=== PATIENT | female | born 1970 | race Two or more races ===

== ENCOUNTER 2019-09-18 00:26 | Inpatient (IN) | payer OTHER ==
[~2019-09-18] VITALS: Ht 157.5 cm; Wt 57.6 kg
[2019-09-18] VITALS (68 sets, daily range): BP systolic 85–137; BP diastolic 41–110
[2019-09-18] MEDS ORDERED: ASPIRIN 81 MG TAB.CHEW PO ONE (00:30)
[2019-09-18] MEDS ORDERED: ASPIRIN 81 MG TAB.CHEW ONE (00:40)
[2019-09-18 00:51] LABS: BASOPHILS # (AUTO) 0.1 /CMM (0.0-0.2); BASOPHILS % (AUTO) 0.6 % (0.0-2.0); EOSINOPHILS % (AUTO) 0.1 % (0.0-6.0); HEMATOCRIT 38 % (33-45); HEMOGLOBIN 12.1 g/dL (11.5-14.8); LYMPHOCYTES % (AUTO) 7.3 % (20.0-44.0); MEAN CORPUSCULAR HGB CONC 32 g/dl (31.0-36.0); MEAN CORPUSCULAR VOLUME 83 fL (82-100); MONOCYTES # (AUTO) 1.1 /CMM (0.1-1.30); MONOCYTES % (AUTO) 7.8 % (2.0-12.0); NEUTROPHILS # (AUTO) 11.4 /CMM (1.8-8.9); NEUTROPHILS % (AUTO) 84.2 % (43.0-81.0); PLATELET COUNT (AUTO) 326 /CMM (150-450); RED BLOOD CELL COUNT(AUTO) 4.58 MIL/uL (4.0-5.2); WHITE BLOOD COUNT (AUTO) 13.5 K/uL (4.3-11.0)
[2019-09-18 01:00] LABS: CALCIUM, SERUM 8.5 mg/dL (8.5-10.1); CARBON DIOXIDE 24 mmol/L (21-32); CHLORIDE 96 mmol/L (98-107); CREATININE 0.8 mg/dL (0.6-1.3); GLUCOSE 132 mg/dL (74-106); SODIUM SERUM 124 mmol/L (136-145); UREA NITROGEN, BLOOD 18 mg/dL (7-18)
[2019-09-18 01:06] LABS: ALANINE AMINOTRANSFERASE 11 U/L (12-78); ALBUMIN 2.6 g/dL (3.4-5.0); ALKALINE PHOSPHATASE 147 U/L (46-116); ASPARTATE AMINOTRANSFERASE 15 U/L (15-37); BILIRUBIN,DIRECT 1.3 mg/dL (0.0-0.2); BILIRUBIN,TOTAL 1.8 mg/dL (0.2-1.0); TOTAL PROTEIN, SERUM 7.4 g/dL (6.4-8.2)
[2019-09-18] MEDS ORDERED: AZITHROMYCIN 500 MG in IV D5W 250 ML IV ONE (01:30)
[2019-09-18] MEDS ORDERED: CEFTRIAXONE 1GM BAG (ER ONLY) 50 ML IV ONE ×2 (01:30→01:32)
[2019-09-18] MEDS ORDERED: AZITHROMYCIN 500 MG VIAL ONE (01:32)
[2019-09-18] MEDS ORDERED: IBUPROFEN 400 MG TABLET ONE (02:17)
[2019-09-18] MEDS ORDERED: ZOLPIDEM TARTRATE 5 MG TABLET PO PRN (02:30)
[2019-09-18] MEDS ORDERED: IV NS 0.9% 1,000 ML IV PRN (02:30)
[2019-09-18] MEDS ORDERED: NS 0.9% IV PRN (02:30)
[2019-09-18] MEDS ORDERED: IBUPROFEN 400 MG TABLET PO ONE (02:30)
[2019-09-18] MEDS ORDERED: MAGNESIUM HYDROXIDE 30 ML UDC PO PRN (02:30)
[2019-09-18] MEDS ORDERED: EPINEPHRINE (1:1000) 1 MG/ML AMPUL ONE (03:58)
[2019-09-18] MEDS ORDERED: IV NS 0.9% 1,000 ML BAG IV ONE ×3 (04:00→04:30)
[2019-09-18] MEDS ORDERED: NALOXONE PREFILLED SYRINGE 2 MG/2 ML SYRINGE ONE (04:00)
[2019-09-18] MEDS ORDERED: DOPamine 400MG/D5W 250ML RTU 250 ML IV ONE (04:03)
[2019-09-18] MEDS ORDERED: ONDANSETRON HCL/PF 4 MG/2 ML VIAL ONE (04:15)
[2019-09-18] MEDS ORDERED: SODIUM BICARBONATE SYR 50 MEQ/50 ML DISP.SYRIN ONE (04:25)
[2019-09-18 04:26] LABS: ABG BASE EXCESS -11.7 mmol/L; ABG PCO2 29.2 mmHg (35.0-45.0); ABG PH 7.285 (7.350-7.450); ABG PO2 105.2 mmHg (75.0-100.0); AaDO2 117.6 mmHg; COHb 1.2 % (0.5-1.5); MetHb 0.1 % (0.0-1.5); O2Hb 94.8 % (94.0-97.0); SITE, ABG Right Radial; VENT MODE, BG N/C 4L
[2019-09-18] MEDS ORDERED: SODIUM BICARBONATE SYR 50 MEQ/50 ML DISP.SYRIN IV ONE (04:30)
[2019-09-18] MEDS ORDERED: DOPamine 400 MG in IV D5W 250 ML IV PRN (04:30)
[2019-09-18] MEDS ORDERED: SODIUM BICARBONATE SYR 100 MEQ in IV NS 0.9% 1,000 ML IV PRN (04:30)
[2019-09-18] MEDS ORDERED: NALOXONE PREFILLED SYRINGE 2 MG/2 ML SYRINGE IV ONE (04:30)
[2019-09-18] MEDS ORDERED: EPINEPHRINE (1:1000) MDV 30 MG/30ML VIAL SUBCUT ONE (04:30)
[2019-09-18] MEDS ORDERED: IV NS 0.9% 250 ML IV ONE (04:49)
[2019-09-18] MEDS ORDERED: IOHEXOL-350 100 ML VIAL IV ONE (04:49)
[2019-09-18] MEDS ORDERED: CT SWABBABLE VALVE TRANS SET 1 EA INFUS.SET MC ONE (04:49)
[2019-09-18 04:56] LABS: ALCOHOL, BLOOD < 3 mg/dL (0-0)
[2019-09-18 04:59] LABS: ACETAMINOPHEN 0 ug/ml (10-30)
[2019-09-18] MEDS ORDERED: ONDANSETRON HCL/PF 4 MG/2 ML VIAL IV PRN (05:00)
[2019-09-18 05:04] LABS: APPEARANCE,URINE CLEAR (CLEAR); BILIRUBIN,URINE NEGATIVE (NEGATIVE); BLOOD, URINE NEGATIVE Ery/uL (NEGATIVE); KETONES,URINE NEGATIVE (NEGATIVE); LEUKOCYTE ESTERASE ,URINE NEGATIVE (NEGATIVE); NITRITE, URINE NEGATIVE (NEGATIVE); PH,URINE 6.5 (5.0-8.0); PROTEIN,URINE NEGATIVE (NEGATIVE); UGLUCOSE NEGATIVE (NEGATIVE)
[2019-09-18 05:08] LABS: COLOR,URINE YELLOW (YELLOW); UROBILINOGEN,URINE 0.2 EU/dL (0.2)
[2019-09-18 07:32] LABS: BASOPHILS # (AUTO) 0.1 /CMM (0.0-0.2); BASOPHILS % (AUTO) 0.3 % (0.0-2.0); HEMATOCRIT 43 % (33-45); HEMOGLOBIN 13.4 g/dL (11.5-14.8); LYMPHOCYTES # (AUTO) 0.9 /CMM (0.8-4.8); LYMPHOCYTES % (AUTO) 5.4 % (20.0-44.0); MEAN CORPUSCULAR HGB CONC 31 g/dl (31.0-36.0); MEAN CORPUSCULAR VOLUME 84 fL (82-100); MONOCYTES % (AUTO) 11.8 % (2.0-12.0); NEUTROPHILS # (AUTO) 14.2 /CMM (1.8-8.9); NEUTROPHILS % (AUTO) 82.5 % (43.0-81.0); PLATELET COUNT (AUTO) 369 /CMM (150-450); RED BLOOD CELL COUNT(AUTO) 5.19 MIL/uL (4.0-5.2); WHITE BLOOD COUNT (AUTO) 17.3 K/uL (4.3-11.0)
[2019-09-18 07:42] LABS: CALCIUM, SERUM 8.1 mg/dL (8.5-10.1); MAGNESIUM 1.7 mg/dL (1.8-2.4); PHOSPHORUS 3.3 mg/dL (2.5-4.9); POTASSIUM 4.1 mmol/L (3.5-5.1)
[2019-09-18] MEDS ORDERED: PHEN100C4 PO (08:34)
[2019-09-18] MEDS ORDERED: SPIR25TA PO (08:34)
[2019-09-18] MEDS ORDERED: OXCA300T4 PO (08:34)
[2019-09-18] MEDS ORDERED: METF-440 PO (08:34)
[2019-09-18] MEDS ORDERED: TRAZ-182 PO (08:34)
[2019-09-18] MEDS ORDERED: SERT100T PO (08:34)
[2019-09-18] MEDS: NOREPINEPHRINE 8 MG in IV D5W 500 ML IV PRN (10:08)
[2019-09-18] MEDS: Magnesium 1GM/D5W 100ML PREMIX 100 ML IV SCH ×2 (10:10→11:11)
[2019-09-18 10:57] LABS: OSMOLALITY,URINE 237 mOS/kg (340-1090); URINE SODIUM, RANDOM 26 mmol/l (40-220)
[2019-09-18] MEDS ORDERED: DoBUTamine 500 MG/250 ML PIGGYBACK IV ONE ×2 (11:30→12:00)
[2019-09-18] MEDS: ASPIRIN 81 MG TAB.CHEW PO SCH (12:25)
[2019-09-18] MEDS: DOBUTamine 500 MG in IV NS 0.9% 210 ML IV PRN (13:05)
[2019-09-18] MEDS: HYDROCODONE/APAP 5/325MG 1 EACH TABLET PO PRN ×2 (18:03→22:46)
[2019-09-18] MEDS: ENOXAPARIN SODIUM 40 MG/0.4 ML DISP.SYRIN SQ SCH (18:06)
[2019-09-18] MEDS ORDERED: ATORVASTATIN 10 MG TABLET PO SCH (22:00)
[2019-09-18] MEDS: CEFTRIAXONE 1 G in IV D5W 50 ML IV SCH (22:40)
[2019-09-18] MEDS: MORPHINE SULFATE INJ 2 MG/ML DISP.SYRIN IV PRN (23:43)
[2019-09-19] VITALS (87 sets, daily range): BP systolic 67–120; BP diastolic 41–80
[2019-09-19] MEDS: ZITHROMAX 500 MG/250 ML D5W IV SCH ×2 (00:34)
[2019-09-19] MEDS ORDERED: AZITHROMYCIN 500 MG in IV D5W 250 ML IV SCH (01:00)
[2019-09-19] MEDS: DOBUTamine 500 MG in IV NS 0.9% 210 ML IV PRN ×2 (03:24→21:26)
[2019-09-19 04:41] LABS: CALCIUM, SERUM 7.7 mg/dL (8.5-10.1); CREATININE 0.8 mg/dL (0.6-1.3); MAGNESIUM 1.8 mg/dL (1.8-2.4); PHOSPHORUS 3.1 mg/dL (2.5-4.9); POTASSIUM 4.2 mmol/L (3.5-5.1)
[2019-09-19 05:15] LABS: OSMOLALITY,URINE 877 mOS/kg (340-1090)
[2019-09-19 05:18] LABS: URINE SODIUM, RANDOM 37 mmol/l (40-220)
[2019-09-19 05:26] LABS: THYROID STIMULATING HORMONE 2.075 uIU/mL (0.358-3.74); URIC ACID 2.3 mg/dL (2.6-7.2)
[2019-09-19] MEDS: NOREPINEPHRINE 8 MG in IV D5W 500 ML IV PRN (08:06)
[2019-09-19] MEDS ORDERED: NOREPINEPHRINE 8 MG in IV D5W 500 ML IV PRN (09:00)
[2019-09-19] MEDS: ASPIRIN 81 MG TAB.CHEW PO SCH (09:08)
[2019-09-19] MEDS: Z GUARD REMEDY 2 OZ OINT TP SCH (10:41)
[2019-09-19] MEDS: LORAZEPAM 1 MG TABLET PO PRN (11:29)
[2019-09-19 13:10] LABS: HIV SCRN 4G wRFX Non Reactive (Non Reactive)
[2019-09-19] MEDS: MORPHINE SULFATE INJ 2 MG/ML DISP.SYRIN IV PRN (19:19)
[2019-09-19] MEDS: MUPIROCIN OINT 2% 22 GM TUBE TP SCH (19:40)
[2019-09-19] MEDS: ENOXAPARIN SODIUM 40 MG/0.4 ML DISP.SYRIN SQ SCH (20:16)
[2019-09-19] MEDS: ONDANSETRON HCL/PF 4 MG/2 ML VIAL IVP PRN (21:48)
[2019-09-19] MEDS: HYDROCODONE/APAP 5/325MG 1 EACH TABLET PO PRN (22:16)
[2019-09-19] MEDS: CEFTRIAXONE 1 G in IV D5W 50 ML IV SCH (22:20)
[2019-09-20] VITALS (25 sets, daily range): BP systolic 87–119; BP diastolic 47–75
[2019-09-20] MEDS: ZITHROMAX 500 MG/250 ML D5W IV SCH ×2 (00:31)
[2019-09-20] MEDS: HYDROCODONE/APAP 5/325MG 1 EACH TABLET PO PRN (04:45)
[2019-09-20] MEDS: MUPIROCIN OINT 2% 22 GM TUBE TP SCH ×2 (04:46→16:41)
[2019-09-20 04:54] LABS: BASOPHILS # (AUTO) 0.1 /CMM (0.0-0.2); BASOPHILS % (AUTO) 0.9 % (0.0-2.0); EOSINOPHILS % (AUTO) 2.3 % (0.0-6.0); HEMATOCRIT 33 % (33-45); HEMOGLOBIN 10.6 g/dL (11.5-14.8); LYMPHOCYTES # (AUTO) 1.2 /CMM (0.8-4.8); LYMPHOCYTES % (AUTO) 11.6 % (20.0-44.0); MEAN CORPUSCULAR HGB CONC 33 g/dl (31.0-36.0); MEAN CORPUSCULAR VOLUME 83 fL (82-100); MONOCYTES # (AUTO) 0.9 /CMM (0.1-1.30); MONOCYTES % (AUTO) 9.4 % (2.0-12.0); NEUTROPHILS # (AUTO) 7.6 /CMM (1.8-8.9); NEUTROPHILS % (AUTO) 75.8 % (43.0-81.0); PLATELET COUNT (AUTO) 301 /CMM (150-450); RED BLOOD CELL COUNT(AUTO) 3.94 MIL/uL (4.0-5.2)
[2019-09-20 05:05] LABS: CALCIUM, SERUM 7.5 mg/dL (8.5-10.1); CREATININE 0.6 mg/dL (0.6-1.3); MAGNESIUM 2.6 mg/dL (1.8-2.4); PHOSPHORUS 3.3 mg/dL (2.5-4.9); POTASSIUM 4.3 mmol/L (3.5-5.1)
[2019-09-20] MEDS: ASPIRIN 81 MG TAB.CHEW PO SCH (08:05)
[2019-09-20] MEDS: Z GUARD REMEDY 2 OZ OINT TP SCH (08:06)
[2019-09-20] MEDS ORDERED: BUMETANIDE INJ 8 MG in IV NS 0.9% 48 ML IV ONE (08:30)
[2019-09-20] MEDS ORDERED: DOBUTamine 500 MG in IV NS 0.9% 210 ML IV PRN (09:30)
[2019-09-20] MEDS: MORPHINE SULFATE INJ 2 MG/ML DISP.SYRIN IV PRN ×3 (13:22→22:45)
[2019-09-20] MEDS ORDERED: DOPamine 400 MG in IV D5W 250 ML IV PRN (14:00)
[2019-09-20] MEDS: DOBUTamine 500 MG in IV D5W 210 ML IV PRN (14:57)
[2019-09-20 18:16] LABS: CALCIUM, SERUM 8.3 mg/dL (8.5-10.1); CREATININE 0.6 mg/dL (0.6-1.3); POTASSIUM 4.2 mmol/L (3.5-5.1)
[2019-09-20] MEDS: ENOXAPARIN SODIUM 40 MG/0.4 ML DISP.SYRIN SQ SCH (21:11)
[2019-09-20] MEDS: CEFTRIAXONE 1 G in IV D5W 50 ML IV SCH (22:45)
[2019-09-21] VITALS (66 sets, daily range): BP systolic 53–118; BP diastolic 22–75
[2019-09-21] MEDS: ZITHROMAX 500 MG/250 ML D5W IV SCH ×2 (01:02)
[2019-09-21] MEDS: LORAZEPAM 1 MG TABLET PO PRN ×2 (01:12→21:20)
[2019-09-21 05:08] LABS: BASOPHILS # (AUTO) 0.1 /CMM (0.0-0.2); BASOPHILS % (AUTO) 1.1 % (0.0-2.0); HEMATOCRIT 36 % (33-45); HEMOGLOBIN 11.7 g/dL (11.5-14.8); LYMPHOCYTES # (AUTO) 1.1 /CMM (0.8-4.8); LYMPHOCYTES % (AUTO) 10.5 % (20.0-44.0); MEAN CORPUSCULAR HGB CONC 32 g/dl (31.0-36.0); MEAN CORPUSCULAR VOLUME 83 fL (82-100); MONOCYTES # (AUTO) 1.1 /CMM (0.1-1.30); MONOCYTES % (AUTO) 10.5 % (2.0-12.0); NEUTROPHILS # (AUTO) 7.6 /CMM (1.8-8.9); NEUTROPHILS % (AUTO) 73.9 % (43.0-81.0); PLATELET COUNT (AUTO) 377 /CMM (150-450); RED BLOOD CELL COUNT(AUTO) 4.38 MIL/uL (4.0-5.2); WHITE BLOOD COUNT (AUTO) 10.3 K/uL (4.3-11.0)
[2019-09-21 05:21] LABS: ALBUMIN 2.4 g/dL (3.4-5.0); BILIRUBIN,TOTAL 0.8 mg/dL (0.2-1.0); CALCIUM, SERUM 8.5 mg/dL (8.5-10.1); CREATININE 0.7 mg/dL (0.6-1.3); MAGNESIUM 1.7 mg/dL (1.8-2.4); PHOSPHORUS 4.1 mg/dL (2.5-4.9); POTASSIUM 3.8 mmol/L (3.5-5.1); TOTAL PROTEIN, SERUM 7.3 g/dL (6.4-8.2)
[2019-09-21] MEDS: MUPIROCIN OINT 2% 22 GM TUBE TP SCH ×2 (05:24→16:19)
[2019-09-21] MEDS: DOBUTamine 500 MG in IV D5W 210 ML IV PRN ×2 (08:07→23:59)
[2019-09-21] MEDS: ASPIRIN 81 MG TAB.CHEW PO SCH (08:53)
[2019-09-21] MEDS: Z GUARD REMEDY 2 OZ OINT TP SCH (08:54)
[2019-09-21] MEDS: Magnesium 1GM/D5W 100ML PREMIX 100 ML IV SCH ×2 (10:05→11:10)
[2019-09-21] MEDS: MORPHINE SULFATE INJ 2 MG/ML DISP.SYRIN IV PRN (18:30)
[2019-09-21] MEDS: ENOXAPARIN SODIUM 40 MG/0.4 ML DISP.SYRIN SQ SCH (21:20)
[2019-09-21] MEDS: CEFTRIAXONE 1 G in IV D5W 50 ML IV SCH (22:03)
[2019-09-22] VITALS: BP 97/44
[2019-09-22] MEDS: ZITHROMAX 500 MG/250 ML D5W IV SCH ×2 (00:18)
[2019-09-22] MEDS: MORPHINE SULFATE INJ 2 MG/ML DISP.SYRIN IV PRN ×3 (03:36→21:14)
[2019-09-22] MEDS: MUPIROCIN OINT 2% 22 GM TUBE TP SCH ×2 (03:43→16:35)
[2019-09-22 04:00] VITALS: BP 105/67
[2019-09-22 06:35] LABS: ALBUMIN 2.2 g/dL (3.4-5.0); BILIRUBIN,TOTAL 0.5 mg/dL (0.2-1.0); CALCIUM, SERUM 8.3 mg/dL (8.5-10.1); CREATININE 0.6 mg/dL (0.6-1.3); MAGNESIUM 1.8 mg/dL (1.8-2.4); PHOSPHORUS 3.6 mg/dL (2.5-4.9); POTASSIUM 4.5 mmol/L (3.5-5.1); TOTAL PROTEIN, SERUM 7.4 g/dL (6.4-8.2)
[2019-09-22 06:36] LABS: BASOPHILS # (AUTO) 0.1 /CMM (0.0-0.2); BASOPHILS % (AUTO) 1.3 % (0.0-2.0); EOSINOPHILS % (AUTO) 5.9 % (0.0-6.0); HEMATOCRIT 37 % (33-45); HEMOGLOBIN 11.8 g/dL (11.5-14.8); MEAN CORPUSCULAR HGB CONC 32 g/dl (31.0-36.0); MEAN CORPUSCULAR VOLUME 83 fL (82-100); MONOCYTES # (AUTO) 0.8 /CMM (0.1-1.30); MONOCYTES % (AUTO) 9.1 % (2.0-12.0); NEUTROPHILS # (AUTO) 6.6 /CMM (1.8-8.9); NEUTROPHILS % (AUTO) 72.7 % (43.0-81.0); PLATELET COUNT (AUTO) 331 /CMM (150-450); WHITE BLOOD COUNT (AUTO) 9.1 K/uL (4.3-11.0)
[2019-09-22 08:00] VITALS: BP_SYST 110; BP_SYST 97; BP_DIAS 41; BP_DIAS 67
[2019-09-22] MEDS: Z GUARD REMEDY 2 OZ OINT TP SCH (09:00)
[2019-09-22] MEDS: ASPIRIN 81 MG TAB.CHEW PO SCH (09:01)
[2019-09-22] MEDS: Z GUARD REMEDY 2 OZ OINT TP PRN (09:20)
[2019-09-22] MEDS ORDERED: BUMETANIDE INJ 8 MG in IV NS 0.9% 48 ML IV ONE (10:30)
[2019-09-22 12:00] VITALS: BP_SYST 111; BP_DIAS 47; BP_DIAS 57
[2019-09-22 16:00] VITALS: BP 116/59
[2019-09-22] MEDS ORDERED: DoBUTamine 500 MG/250 ML PIGGYBACK IV SCH (16:30)
[2019-09-22] MEDS: DOBUTamine 500 MG in IV D5W 210 ML IV PRN ×2 (17:57→18:15)
[2019-09-22 20:00] VITALS: BP 120/70
[2019-09-22] MEDS: ONDANSETRON HCL/PF 4 MG/2 ML VIAL IVP PRN (21:13)
[2019-09-22] MEDS: ENOXAPARIN SODIUM 40 MG/0.4 ML DISP.SYRIN SQ SCH (21:15)
[2019-09-22] MEDS: CEFTRIAXONE 1 G in IV D5W 50 ML IV SCH (22:36)
[2019-09-22] MEDS: HYDROCODONE/APAP 5/325MG 1 EACH TABLET PO PRN (22:42)
[2019-09-23] VITALS: BP 109/67
[2019-09-23] MEDS: ZITHROMAX 500 MG/250 ML D5W IV SCH ×2 (00:20)
[2019-09-23 04:00] VITALS: BP 109/66
[2019-09-23] MEDS: MUPIROCIN OINT 2% 22 GM TUBE TP SCH ×2 (04:02→16:51)
[2019-09-23] MEDS: MORPHINE SULFATE INJ 2 MG/ML DISP.SYRIN IV PRN ×2 (05:16→20:29)
[2019-09-23 06:29] LABS: BASOPHILS # (AUTO) 0.1 /CMM (0.0-0.2); BASOPHILS % (AUTO) 1.1 % (0.0-2.0); EOSINOPHILS % (AUTO) 7.4 % (0.0-6.0); HEMATOCRIT 42 % (33-45); HEMOGLOBIN 13.3 g/dL (11.5-14.8); LYMPHOCYTES # (AUTO) 1.4 /CMM (0.8-4.8); MEAN CORPUSCULAR HGB CONC 32 g/dl (31.0-36.0); MEAN CORPUSCULAR VOLUME 83 fL (82-100); MONOCYTES # (AUTO) 1.1 /CMM (0.1-1.30); MONOCYTES % (AUTO) 11.6 % (2.0-12.0); NEUTROPHILS # (AUTO) 6.5 /CMM (1.8-8.9); NEUTROPHILS % (AUTO) 65.9 % (43.0-81.0); PLATELET COUNT (AUTO) 459 /CMM (150-450); RED BLOOD CELL COUNT(AUTO) 5.06 MIL/uL (4.0-5.2); WHITE BLOOD COUNT (AUTO) 9.8 K/uL (4.3-11.0)
[2019-09-23 06:46] LABS: ALBUMIN 2.6 g/dL (3.4-5.0); BILIRUBIN,TOTAL 0.6 mg/dL (0.2-1.0); CREATININE 0.7 mg/dL (0.6-1.3); MAGNESIUM 1.9 mg/dL (1.8-2.4); PHOSPHORUS 4.6 mg/dL (2.5-4.9); POTASSIUM 4.3 mmol/L (3.5-5.1); TOTAL PROTEIN, SERUM 8.7 g/dL (6.4-8.2)
[2019-09-23] MEDS: DOBUTamine 500 MG in IV D5W 210 ML IV PRN (07:59)
[2019-09-23 08:00] VITALS: BP_SYST 110; BP_DIAS 64; BP_DIAS 66
[2019-09-23] MEDS: ASPIRIN 81 MG TAB.CHEW PO SCH (08:11)
[2019-09-23] MEDS: Z GUARD REMEDY 2 OZ OINT TP SCH (08:11)
[2019-09-23] MEDS: ACETAMINOPHEN 325 MG TABLET PO PRN (08:11)
[2019-09-23] MEDS: FUROSEMIDE 40 MG TABLET PO SCH (10:01)
[2019-09-23] MEDS: CARVEDILOL 3.125 MG TABLET PO SCH ×2 (10:01→20:27)
[2019-09-23 12:00] VITALS: BP 107/69
[2019-09-23 16:00] VITALS: BP 108/73
[2019-09-23 20:00] VITALS: BP 111/63
[2019-09-23] MEDS: ENOXAPARIN SODIUM 40 MG/0.4 ML DISP.SYRIN SQ SCH (20:28)
[2019-09-23] MEDS: MAG HYDROX/AL HYDROX/SIMETH 30 ML UDC PO PRN (21:59)
[2019-09-23] MEDS: HYDROCODONE/APAP 5/325MG 1 EACH TABLET PO PRN (23:14)
[2019-09-23] MEDS: CEFTRIAXONE 1 G in IV D5W 50 ML IV SCH (23:15)
[2019-09-24] VITALS: BP 106/61
[2019-09-24] MEDS: MORPHINE SULFATE INJ 2 MG/ML DISP.SYRIN IV PRN ×3 (03:35→23:54)
[2019-09-24 04:00] VITALS: BP 111/69
[2019-09-24] MEDS: MUPIROCIN OINT 2% 22 GM TUBE TP SCH ×2 (04:30→16:59)
[2019-09-24] MEDS: HYDROCODONE/APAP 5/325MG 1 EACH TABLET PO PRN ×2 (05:49→13:20)
[2019-09-24 07:19] LABS: BASOPHILS # (AUTO) 0.1 /CMM (0.0-0.2); BASOPHILS % (AUTO) 1.1 % (0.0-2.0); EOSINOPHILS % (AUTO) 7.2 % (0.0-6.0); HEMATOCRIT 43 % (33-45); HEMOGLOBIN 13.3 g/dL (11.5-14.8); LYMPHOCYTES # (AUTO) 1.4 /CMM (0.8-4.8); LYMPHOCYTES % (AUTO) 15.9 % (20.0-44.0); MEAN CORPUSCULAR HGB CONC 31 g/dl (31.0-36.0); MEAN CORPUSCULAR VOLUME 83 fL (82-100); NEUTROPHILS # (AUTO) 5.8 /CMM (1.8-8.9); NEUTROPHILS % (AUTO) 64.8 % (43.0-81.0); PLATELET COUNT (AUTO) 512 /CMM (150-450); RED BLOOD CELL COUNT(AUTO) 5.11 MIL/uL (4.0-5.2); WHITE BLOOD COUNT (AUTO) 8.9 K/uL (4.3-11.0)
[2019-09-24 07:33] LABS: CALCIUM, SERUM 9.1 mg/dL (8.5-10.1); CREATININE 0.6 mg/dL (0.6-1.3); POTASSIUM 4.6 mmol/L (3.5-5.1)
[2019-09-24 08:00] VITALS: BP 103/59
[2019-09-24] MEDS: CARVEDILOL 3.125 MG TABLET PO SCH ×2 (08:58→20:55)
[2019-09-24] MEDS: LISINOPRIL (5MG) 5 MG TABLET PO SCH (09:11)
[2019-09-24] MEDS: ASPIRIN 81 MG TAB.CHEW PO SCH (09:11)
[2019-09-24] MEDS: FUROSEMIDE 40 MG TABLET PO SCH (09:11)
[2019-09-24] MEDS: Z GUARD REMEDY 2 OZ OINT TP SCH (09:14)
[2019-09-24] MEDS ORDERED: ASPI-1169 PO (09:56)
[2019-09-24] MEDS ORDERED: LISI-607 PO (09:56)
[2019-09-24] MEDS ORDERED: FURO40TA5 PO (09:56)
[2019-09-24] MEDS ORDERED: CARV3.122 PO (09:56)
[2019-09-24 12:00] VITALS: BP 93/60
[2019-09-24] MEDS: LORAZEPAM 1 MG TABLET PO PRN ×2 (12:35→12:57)
[2019-09-24 16:00] VITALS: BP 103/65
[2019-09-24 20:00] VITALS: BP 93/55
[2019-09-24] MEDS: ENOXAPARIN SODIUM 40 MG/0.4 ML DISP.SYRIN SQ SCH (20:59)
[2019-09-24] MEDS: ACETAMINOPHEN 325 MG TABLET PO PRN (21:02)
[2019-09-24] MEDS: CEFTRIAXONE 1 G in IV D5W 50 ML IV SCH (22:15)
[2019-09-24] MEDS ORDERED: AZITHROMYCIN 250 MG TABLET PO SCH (23:00)
[2019-09-25 04:00] VITALS: BP 123/69
[2019-09-25] MEDS: MUPIROCIN OINT 2% 22 GM TUBE TP SCH ×2 (05:14→16:39)
[2019-09-25] MEDS: HYDROCODONE/APAP 5/325MG 1 EACH TABLET PO PRN (05:32)
[2019-09-25 08:00] VITALS: BP 113/68
[2019-09-25] MEDS: FUROSEMIDE 40 MG TABLET PO SCH (09:10)
[2019-09-25] MEDS: ASPIRIN 81 MG TAB.CHEW PO SCH (09:10)
[2019-09-25] MEDS: LISINOPRIL (5MG) 5 MG TABLET PO SCH (09:11)
[2019-09-25] MEDS: CARVEDILOL 3.125 MG TABLET PO SCH (09:11)
[2019-09-25] MEDS: MORPHINE SULFATE INJ 2 MG/ML DISP.SYRIN IV PRN ×2 (09:12→15:16)
[2019-09-25] MEDS: Z GUARD REMEDY 2 OZ OINT TP PRN (09:22)
[2019-09-25] MEDS: Z GUARD REMEDY 2 OZ OINT TP SCH (09:26)
[2019-09-25 16:00] VITALS: BP 98/62
[2019-09-25] MEDS: MAG HYDROX/AL HYDROX/SIMETH 30 ML UDC PO PRN (16:04)
== END 2019-09-25 18:51 | DRG 139 ==
LOC: ER 00:26 → TELE1 02:56 → ICU 06:20 → TELE-TD 09-21 21:35 → TELE1 09-24 10:05 → MEDSG1 09-24 15:04
PROVIDERS: ATTEND Student in an Organized Health Care Education/Training Program
DX: J15.9 Unspecified bacterial pneumonia (principal); I50.23 Acute on chronic systolic (congestive) heart failure; E87.2 Acidosis; I27.21 Secondary pulmonary arterial hypertension; E22.2 Syndrome of inappropriate secretion of antidiuretic hormone; I11.0 Hypertensive heart disease with heart failure; I95.9 Hypotension, unspecified; I42.8 Other cardiomyopathies; E83.42 Hypomagnesemia; K74.60 Unspecified cirrhosis of liver; G40.909 Epilepsy, unspecified, not intractable, without status epilepticus; F41.9 Anxiety disorder, unspecified; Z59.0 Homelessness; Z87.891 Personal history of nicotine dependence; D25.9 Leiomyoma of uterus, unspecified; K57.30 Diverticulosis of large intestine without perforation or abscess without bleeding; Z22.322 Carrier or suspected carrier of Methicillin resistant Staphylococcus aureus; F39 Unspecified mood [affective] disorder
CPT/HCPCS: 36415; 36600; 70450-TC; 71045-TC; 80048-TC; 80053-TC; 80061-TC; 80076-TC; 80305; 81000-TC; 82962-TC; 83605-TC; 83735-TC; 83880; 83935-TC; 84100-TC; 84300-TC; 84443-TC; 84484-TC; 84550-TC; 84703-TC; 85025-TC; 85730-TC; 87040-TC; 87081-TC; 93307-TC; 97112-TC; 97530-TC; A4216; C1751; G0378; G0480; J0171; J0456; J0696; J1250; J1265; J1650; J2270; J2310; J2405; J3475; J3490; J7030; J7050; J7060; Q9967